=== PATIENT | male | born 1960 | race Caucasian/White ===

== ENCOUNTER 2017-10-25 14:17 | Emergency (ER) | payer OTHER ==
[2017-10-25] MEDS: KETOROLAC 30 MG INJ IV (15:56)
[2017-10-25 16:10] LABS: ADD MAN DIFF? NO
[2017-10-25 16:37] LABS: C-REACTIVE PROTEIN 5.8 mg/dl (0.0-0.9)
[2017-10-25 16:38] LABS: LACTIC ACID 1.4 mmol/L (0.5-2.0)
[2017-10-25 16:46] LABS: BASOPHIL # 0.1 10^3/ul (0.0-0.1); BASOPHILS % 0.5 % (0.0-2.0); EOSINOPHILS # 0.2 10^3/ul (0.0-0.5); EOSINOPHILS % 1.7 % (0.0-7.0); HEMATOCRIT 45.5 % (42.0-52.0); HEMOGLOBIN 15.9 g/dl (14.0-18.0); LYMPHOCYTES % 18.2 % (15.0-51.0); MEAN CORPUSCULAR HEMOGLOBIN 30.3 pg (29.0-33.0); MEAN CORPUSCULAR HGB CONC 34.9 g/dl (32.0-37.0); MEAN CORPUSCULAR VOLUME 86.8 fl (82.0-101.0); MEAN PLATELET VOLUME 10.4 fl (7.4-10.4); MONOCYTE # 0.9 10^3/ul (0.3-0.9); MONOCYTES % 8.4 % (0.0-11.0); NEUTROPHIL # 7.7 10^3/ul (1.6-7.5); NEUTROPHILS % 70.6 % (39.0-77.0); PLATELET COUNT 205 10^3/UL (140-415); RED BLOOD COUNT 5.24 10^6/ul (4.70-6.10); RED CELL DISTRIBUTION WIDTH 13.2 % (11.5-14.5)
[2017-10-25 16:46] LABS: WHITE BLOOD COUNT 10.9 10^3/ul (4.8-10.8)
[2017-10-25 17:25] LABS: ERYTHROCYTE SEDIMENTATION RATE 25 mm/Hr (0-20)
[2017-10-25] MEDS: LIDOCAINE 1% (MDV) 10 ML INJ INFIL (17:57)
[2017-10-25] MEDS: PIPER-TAZO 3.375 GM IV (PMX) 100 ML IVPB (18:40)
[2017-10-25] MEDS: morphine 4 MG/ML VIAL IV (18:50)
[2017-10-25] MEDS: VANCOMYCIN 1 GM (PMX) 250 ML IVPB (19:07)
== END 2017-10-25 21:23 | disposition home or self-care (01) ==
LOC: FTE 14:17
DX: M79.89 Other specified soft tissue disorders (principal); I10 Essential (primary) hypertension; F17.210 Nicotine dependence, cigarettes, uncomplicated
CPT/HCPCS: 73080; 73080-LT; 83605; 85025; 85651; 86140; 96365; 96366; 96367; 96375; 99284-25

== ENCOUNTER 2017-11-07 09:52 | Emergency (ER) | payer OTHER ==
[2017-11-07] MEDS: LIDOCAINE 1% (MDV) 10 ML INJ INFIL (10:55)
== END 2017-11-07 11:10 | disposition home or self-care (01) ==
LOC: FTE 09:52
DX: M70.22 Olecranon bursitis, left elbow (principal); Y93.9 Activity, unspecified; Z87.891 Personal history of nicotine dependence
CPT/HCPCS: 99282; Z7502

== ENCOUNTER 2018-08-18 09:49 | Emergency (ER) | payer OTHER ==
[2018-08-18] MEDS: KETOROLAC 60 MG INJ IM (11:01)
== END 2018-08-18 12:28 | disposition home or self-care (01) ==
LOC: FTE 09:49
DX: M79.671 Pain in right foot (principal); I10 Essential (primary) hypertension; Z87.891 Personal history of nicotine dependence
CPT/HCPCS: 96372; 99284-25

== ENCOUNTER 2018-11-16 12:06 | Emergency (ER) | payer OTHER ==
[2018-11-16] MEDS: KETOROLAC 60 MG INJ IM (12:43)
== END 2018-11-16 13:22 | disposition home or self-care (01) ==
LOC: FTE 12:06
DX: M25.571 Pain in right ankle and joints of right foot (principal); M25.572 Pain in left ankle and joints of left foot; I10 Essential (primary) hypertension; Z87.891 Personal history of nicotine dependence
CPT/HCPCS: 96372; 99284-25